=== PATIENT | female | born 1995 | race African-American/Black ===

== ENCOUNTER 2021-11-21 05:52 | Emergency (ER) | payer BC, OTHER ==
[~2021-11-21] VITALS: Ht 167.6 cm; Wt 61.2 kg
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
--- NOTE | 2021-11-21 06:37 | NUR ---
WAIVER SIGNED AND PLACED IN PT CHART
--- NOTE | 2021-11-21 06:38 | NUR ---
FUNERAL PROFESSIONAL AT PT'S BEDSIDE
[2021-11-21] MEDS ORDERED: IBUPROFEN 600 MG TABLET ONE (06:56)
[2021-11-21] MEDS ORDERED: IBUPROFEN 600 MG TABLET PO ONE (07:00)
[2021-11-21 08:58] VITALS: BP 115/77
--- NOTE | 2021-11-21 08:59 | NUR ---
Patient discharged to home in stable condition. Written and verbal after care instructions given. Patient verbalizes understanding of instruction.
== END 2021-11-21 08:59 | disposition home or self-care (01) ==
LOC: ER 05:56
DX: S62.397A Other fracture of fifth metacarpal bone, left hand, initial encounter for closed fracture (principal); R94.31 Abnormal electrocardiogram [ECG] [EKG]; Z88.2 Allergy status to sulfonamides; V49.49XA Driver injured in collision with other motor vehicles in traffic accident, initial encounter; Y93.89 Activity, other specified; Y92.413 State road as the place of occurrence of the external cause; Y99.8 Other external cause status
CPT/HCPCS: 71045-TC; 73110